=== PATIENT | male | born 1955 | race Caucasian/White ===

== ENCOUNTER 2019-05-31 13:17 | Emergency (ER) | payer OTHER, BC, MEDICARE ==
[2019-05-31] MEDS ORDERED: Ondansetron 4 MG/2 ML SDV IVPUSH ONE (13:26)
[2019-05-31] MEDS ORDERED: HYDROmorphone 1 MG/ML Syringe IVPUSH ONE (13:27)
[2019-05-31] MEDS ORDERED: HYDROmorphone 1 MG/ML Syringe ONE (13:28)
[2019-05-31] MEDS ORDERED: Sodium Chloride 0.9% 1,000 ML IV SCH (13:30)
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
--- NOTE | 2019-05-31 14:26 | CR ---
Left femur: AP and lateral views of the left femur were obtained. Comparison: No previous study. Knee prosthesis is seen. Joint space within the left hip is preserved. No fracture or other bony abnormality is seen. Impression: 1. Findings as noted above. 2. Nothing acute is appreciated on two-view left femur study. Diagnostic code #2
--- NOTE | 2019-05-31 14:26 | CR ---
Chest: Frontal view of the chest was obtained. Comparison: No prior chest x-ray. Heart size and mediastinum are normal. Lungs are clear. Bony structures are grossly intact. Impression: 1. Nothing acute is seen on frontal chest x-ray. Diagnostic code #1
--- NOTE | 2019-05-31 14:26 | CR ---
Pelvis: AP view of the pelvis was obtained. Comparison: No previous pelvis study. Joint spaces within both hips are maintained. Sacroiliac joints are unremarkable. Degenerative endplate spurring is seen within the lumbar spine. Impression: 1. Endplate spurring within the lumbar spine. 2. Nothing acute is appreciated on AP pelvis study. Diagnostic code #2
--- NOTE | 2019-05-31 14:50 | CR ---
Left tibia and fibula: AP and lateral views of the left tibia and fibula were obtained. Comparison: No previous study. Knee prosthesis is seen. No fracture or other bony abnormality is seen. Impression: 1. Knee prosthesis. 2. Left tibia and fibula exam is otherwise unremarkable. Diagnostic code #2
--- NOTE | 2019-05-31 14:50 | CR ---
Left shoulder: Three views of left shoulder were obtained. Comparison: No previous study. Slight degenerative change is noted within the glenohumeral joint. Acromioclavicular joint shows no abnormal inferior spurring. No acute fracture or dislocation is seen. 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 Impression: 1. 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 2. Slight degenerative change. 3. Left shoulder study shows nothing acute. Diagnostic code #2
[2019-05-31] MEDS ORDERED: HYDROmorphone 0.5 MG/0.5 ML Syringe IVPUSH ONE (15:06)
[2019-05-31] MEDS ORDERED: Acetaminophen/oxyCODONE 325-5 MG Tab PO ONE (15:07)
== END 2019-05-31 18:15 | disposition home or self-care (01) ==
LOC: JD.ED 13:17
DX: S80.12XA Contusion of left lower leg, initial encounter (principal); S00.11XA Contusion of right eyelid and periocular area, initial encounter; S70.12XA Contusion of left thigh, initial encounter; I10 Essential (primary) hypertension; V64.5XXA Driver of heavy transport vehicle injured in collision with heavy transport vehicle or bus in traffic accident, initial encounter; Y92.410 Unspecified street and highway as the place of occurrence of the external cause
CPT/HCPCS: 36415; 71045; 72170; 73030; 73552; 73590; 80053; 85025; 85610; 85730; 93005; 96361; 96374; 96375; 99285; A9270; J1170; J2405; J7040